=== PATIENT | male | born 1940 | race Caucasian/White ===

== ENCOUNTER → 2016-10-16 | Outpatient (CLI) | payer BC ==
[~2016-10-16] MED LIST: ADVIN25050 INH; ALBUAER INH; ASPCH81 PO; ASPI81TA28 PO; BUME1TAB PO; DILT240C57 PO; DLCSR180 PO; ERGO1CAP35 PO; LNX125 PO; MULTCAP31 PO; TRAM-10 PO; WARF2TAB8 PO; WARF4TAB8 PO
[2016-10-16 12:30] LABS: URINE APPEARANCE CLEAR (CLEAR); URINE BILIRUBIN NEG (NEG); URINE COLOR YELLOW; URINE EPITHELIAL CELL AUTO 0-5 /lpf (0-5); URINE NITRITE NEG (NEG); URINE PH 6.5 (4.5-7.5); URINE SPECIFIC GRAVITY 1.007 (1.000-1.030); UROBILINOGEN NEG (NEG)
[2016-10-16 12:34] LABS: BLOOD UREA NITROGEN 17 mg/dl (7-18); BUN/CREATININE RATIO 13.9 (10-20); CALCIUM 8.7 mg/dl (8.5-10.1); CARBON DIOXIDE 26 mmol/L (21-32); CHLORIDE 106 mmol/L (98-107); GLUCOSE 100 mg/dl (70-99); HEMATOCRIT 47.5 % (42-52); MEAN CELL VOLUME 83.5 fL (80-100); MEAN CORPUSCULAR HEMOGLOBIN 28.5 pg (25-34); MEAN CORPUSCULAR HGB CONC 34.1 g/dl (32-36); MEAN PLATELET VOLUME 11.5 fL (7.4-10.4); PLATELET COUNT 212 K/uL (130-400); POTASSIUM 3.7 mmol/L (3.5-5.1); RED BLOOD COUNT 5.69 M/uL (4.7-6.1); SODIUM 141 mmol/L (136-145); WHITE BLOOD COUNT 9.44 K/uL (4.8-10.8)
[2016-10-16 12:35] LABS: PHOSPHORUS 2.4 mg/dl (2.5-4.9)
[2016-10-16 12:52] LABS: MANUAL MICROSCOPIC REQUIRED? NO; REVIEW REQ? NO
[2016-10-16 13:02] LABS: URINE PROTIEN/CREAT RATIO 0.2 (0-0.2); URINE TOTAL PROTEIN 10.7 mg/dl (0-11.9)
== END | disposition home or self-care (01) ==
LOC: C.LABBFT 09:09
PROVIDERS: ATTEND Internal Medicine Nephrology
DX: I12.9 Hypertensive chronic kidney disease with stage 1 through stage 4 chronic kidney disease, or unspecified chronic kidney disease (principal); N18.3 Chronic kidney disease, stage 3 (moderate); E55.9 Vitamin D deficiency, unspecified; N25.81 Secondary hyperparathyroidism of renal origin

== ENCOUNTER → 2017-02-05 | Outpatient (CLI) | payer BC ==
--- NOTE | 2017-02-05 14:50 | DIAGNOSTIC IMAGING REPORT ---
TWO VIEW CHEST CLINICAL HISTORY: Cough. Hemoptysis. FINDINGS: PA and lateral chest radiographs are compared to study dated 01/25/2016. Correlation is made with chest CT dated 11/17/2015. The PA view is degraded by patient rotation. The heart is enlarged and there is atherosclerotic calcification of the thoracic aorta. The pulmonary vasculature is noncongested. Emphysema and chronic interstitial thickening is similar to previous. There is no airspace consolidation or pleural effusion. Scattered calcified granulomas are observed. There is no pneumothorax. The skeletal structures are osteopenic. Degenerative change is noted throughout the thoracic spine. IMPRESSION: Cardiomegaly and emphysema. No acute cardiopulmonary abnormality is seen. Electronically signed by: Donavon Mann M.D. 02/05/2017 2:49 PM Dictated Date/Time: 02/05/2017 2:47 PM
== END | disposition home or self-care (01) ==
LOC: C.RAD1850 14:35
PROVIDERS: ATTEND Physician Assistant
DX: R04.2 Hemoptysis (principal); R59.0 Localized enlarged lymph nodes; R14.0 Abdominal distension (gaseous); I51.7 Cardiomegaly; J43.9 Emphysema, unspecified

== ENCOUNTER 2017-03-26 15:48 | Emergency (ER) | payer BC ==
[~2017-03-26] VITALS: Ht 177.8 cm; Wt 122.0 kg
[~2017-03-26 15:48] MED LIST changes: -ASPI81TA28 PO; -DILT240C57 PO; -LNX125 PO
[2017-03-26 16:03] VITALS: TEMP 36.3; Ht 177.8 cm; Wt 122.0 kg
--- NOTE | 2017-03-26 17:04 | DIAGNOSTIC IMAGING REPORT ---
LEFT KNEE 1 OR 2 VIEWS ROUTINE CLINICAL HISTORY: fall trauma COMPARISON: None. DISCUSSION: The bones and joint spaces appear intact. There is no evidence of fracture, dislocation or bony disease. There has been a total left knee arthroplasty There is no evidence for soft tissue swelling. IMPRESSION: Negative study. The above report was generated using voice recognition software. It may contain grammatical, syntax or spelling errors. Electronically signed by: Chapo De La Rosa M.D. 03/26/2017 5:03 PM Dictated Date/Time: 03/26/2017 5:03 PM
--- NOTE | 2017-03-26 17:05 | DIAGNOSTIC IMAGING REPORT ---
LEFT PELVIS/UNILATERAL HIP 2-3VIEWS CLINICAL HISTORY: hip pain fall COMPARISON STUDY: None. FINDINGS: Mild osteoarthritis within the left hip. No fracture or dislocation within the pelvis or hips. The sacrum is intact. Soft tissues demonstrate mild swelling along the lateral aspect of the left hip. IMPRESSION: Mild lateral hip soft tissue swelling. No fracture or dislocation within the pelvis or hips. Electronically signed by: Shaheen Farias M.D. 03/26/2017 5:04 PM Dictated Date/Time: 03/26/2017 5:02 PM
[2017-03-26] MEDS ORDERED: LNX125 PO (17:36)
[2017-03-26] MEDS ORDERED: DILT240C57 PO (17:36)
[2017-03-26] MEDS ORDERED: ALBUAER INH (17:36)
[2017-03-26] MEDS ORDERED: ASPI81TA28 PO (17:36)
--- NOTE | 2017-03-26 18:01 | EMERGENCY ROOM VISIT NOTE ---
History Report prepared by Sulaiman: Amparo Cartagena Under the Supervision of: Dr. Allan Mcrae D.O. First contact with patient: 16:30 Chief Complaint: HIP PAIN Stated Complaint: LEFT HIP PAIN History of Present Illness The patient is a 76 year old male who presents to the Emergency Room with complaints of persistent left hip pain that began last night around 2230. He currently rates her discomfort as a 9.5/10 in severity. The patient states that around 0 last evening he fell on his back porch. He states that he has chronic left knee pain. The patient states that he has been able to ambulate with the assistance of his cane. He reports increased edema to his left knee. The patient states that movement worsens his pain, but rest alleviates his discomfort. The patient states that he is on Coumadin. He additionally reports that he fell last week, causing an abrasion to his right [place]. Source of History: patient Onset: last night around 2230 Position: other (left hip) Symptom Intensity: 9.5/10 Timing: other (persistent) Modifying Factors (Worsening): movement Modifying Factors (Relieving): rest Review of Systems See HPI for pertinent positives & negatives. A total of 10 systems reviewed and were otherwise negative. Past Medical & Surgical Medical Problems: (1) JEFFERY (acute kidney injury) (2) Atrial fibrillation (3) Chronic kidney disease, stage 3 (4) COPD (chronic obstructive pulmonary disease) (5) COPD exacerbation (6) Hematuria, microscopic (7) New onset atrial fibrillation (8) New onset atrial fibrillation (9) Sepsis Surgical Problems: (1) History of hernia repair (2) Knee joint replacement status Family History FH: cancer FH: lung disease Hypertension Social History Smoking Status: Former Smoker Alcohol Use: none Drug Use: none Marital Status: Housing Status: lives alone Occupation Status: retired Current/Historical Medications Scheduled Aspirin (Aspirin Ec), 81 MG PO DAILY Bumetanide (Bumex), 1 MG PO DAILY Digoxin (Digoxin), 1 TAB PO DAILY Diltiazem Hcl Coated Beads (Cardizem Cd), 240 MG PO DAILY Fluticasone Prop/Salmeterol (Advair Diskus 250-50 Mcg/Dose), 1 PUFF INH BID Multiple Vitamins W/ Minerals (Ocuvite Lutein), 1 TAB PO DAILY Warfarin Sod (Jantoven), 4 MG PO UD Scheduled PRN Albuterol Sulfate (Proventil Hfa), 2 PUFFS INH QID PRN for SOB/Wheezing Allergies Coded Allergies: BEE STING (Unverified Allergy, Unknown, SWELLING, 03/26/17) Physical Exam Vital Signs Date Time Temp Pulse Resp B/P (MAP) Pulse Ox O2 Delivery O2 Flow Rate FiO2 03/26/17 17:45 85 18 146/82 95 Room Air 03/26/17 16:03 36.3 89 18 162/84 96 Room Air Physical Exam CONSTITUTIONAL/VITAL SIGNS: Reviewed / noted above. GENERAL: Non-toxic in appearance. INTEGUMENTARY: Warm, dry, and [place]. HEAD: Normocephalic. EYES: without scleral icterus or trauma. ENT/OROPHARYNX: clear and moist. LYMPHADENOPATHY/NECK: Is supple without lymphadenopathy or meningismus. RESPIRATORY: Lungs clear and equal. CARDIOVASCULAR: Regular rate and rhythm. GI/ABDOMEN: Soft and nontender. No organomegaly or pulsatile mass. No rebound or guarding. Normal bowel sounds. EXTREMITIES: Tenderness to palpation of the left lateral hip and left lateral knee. Range of motion is limited due to pain. Warm and well perfused. BACK: No CVA tenderness. NEUROLOGICAL: Intact without focal deficits. PSYCHIATRIC: normal affect. MUSCULOSKELETAL: Normally developed with good muscle tone. Medical Decision & Procedures ER Provider Diagnostic Interpretation: X ray results and stated below per my interpretation and radiology interpretation. LEFT KNEE 1 OR 2 VIEWS ROUTINE CLINICAL HISTORY: fall trauma COMPARISON: None. DISCUSSION: The bones and joint spaces appear intact. There is no evidence of fracture, dislocation or bony disease. There has been a total left knee arthroplasty There is no evidence for soft tissue swelling. IMPRESSION: Negative study. The above report was generated using voice recognition software. It may contain grammatical, syntax or spelling errors. Electronically signed by: Chapo De La Rosa M.D. 03/26/2017 5:03 PM Dictated Date/Time: 03/26/2017 5:03 PM LEFT PELVIS/UNILATERAL HIP 2-3VIEWS CLINICAL HISTORY: hip pain fall COMPARISON STUDY: None. FINDINGS: Mild osteoarthritis within the left hip. No fracture or dislocation within the pelvis or hips. The sacrum is intact. Soft tissues demonstrate mild swelling along the lateral aspect of the left hip. IMPRESSION: Mild lateral hip soft tissue swelling. No fracture or dislocation within the pelvis or hips. Electronically signed by: Shaheen Farias M.D. 03/26/2017 5:04 PM Dictated Date/Time: 03/26/2017 5:02 PM ED Course 1636: Previous medical records were reviewed. The patient was evaluated in room A12A. A complete history and physical examination was performed. 180: I reevaluated the patient and he is resting comfortably. I discussed the exam findings with him and I discussed the treatment plan. He verbalized complete understanding and agreement. He is ready to go home. Medical Decision Differential diagnosis: Etiologies such as fracture, dislocation, neurovascular compromise, compartment syndrome, soft tissue injury, as well as others were entertained. This is a 76-year-old male who presents to the ED with a chief complaint of a fall and left-sided hip and knee pain. The patient states that around 10:30 PM last night he was not walking with his cane and lost his balance when his knee gave out on him causing him to fall. The patient complains of left hip and knee pain. It is worse with palpation and certain movements. He denies hitting his head or headache. Head is normal on exam. His exam is noted above. He does have some tenderness in the left hip laterally and left knee laterally. His range of motion is limited due to discomfort. X-rays did not show fracture or dislocation. He was told the results. He was offered a walker but declined. He is felt to be stable for discharge. Medication Reconcilliation Current Medication List: was personally reviewed by me Blood Pressure Screening Patient's blood pressure: Elevated blood pressure Blood pressure disposition: Elevated BP felt to be situational, Did not require urgent referral Impression Primary Impression: Multiple contusions Scribe Attestation The scribe's documentation has been prepared under my direction and personally reviewed by me in its entirety. I confirm that the note above accurately reflects all work, treatment, procedures, and medical decision making performed by me. Departure Information Dispostion Home / Self-Care Referrals No Doctor, Assigned (PCP) Forms HOME CARE DOCUMENTATION FORM, IMPORTANT VISIT INFORMATION, WORK / SCHOOL INSTRUCTIONS Patient Instructions My [facility] Additional Instructions Follow-up with your doctor for further care and evaluation in 1-2 days. Return to the emergency department for worsening or new symptoms or any concerns. You have been examined and treated today on an emergency basis only. This is not a substitute for, or an effort to provide, complete comprehensive medical care. It is impossible to recognize and treat all injuries or illnesses in a single emergency department visit. It is therefore important that you follow up closely with your doctor. Call as soon as possible for an appointment.
[2017-03-26 18:03] VITALS: BP 146/82; PULSE 85; O2SAT 95
== END 2017-03-26 18:04 | disposition home or self-care (01) ==
LOC: C.EDB 15:48 → C.EDA 18:04
DX: S70.02XA Contusion of left hip, initial encounter (principal); S80.02XA Contusion of left knee, initial encounter; W19.XXXA Unspecified fall, initial encounter; I48.91 Unspecified atrial fibrillation; N18.3 Chronic kidney disease, stage 3 (moderate); J44.9 Chronic obstructive pulmonary disease, unspecified; Z96.659 Presence of unspecified artificial knee joint; Z79.01 Long term (current) use of anticoagulants; Z79.82 Long term (current) use of aspirin; Z79.899 Other long term (current) drug therapy; Z87.891 Personal history of nicotine dependence; Z80.9 Family history of malignant neoplasm, unspecified; Z82.49 Family history of ischemic heart disease and other diseases of the circulatory system; Z91.030 Bee allergy status

== ENCOUNTER → 2017-11-06 | Outpatient (CLI) | payer BC ==
[~2017-11-06] MED LIST changes: -ASPCH81 PO; +ASPI81TA28 PO; +DILT240C57 PO; -DLCSR180 PO; -ERGO1CAP35 PO; +LNX125 PO; -TRAM-10 PO; -WARF2TAB8 PO
[2017-11-06 16:35] LABS: HEMATOCRIT 50.1 % (42-52); HEMOGLOBIN 16.9 g/dL (14.0-18.0); MEAN CELL VOLUME 90.3 fL (80-100); MEAN CORPUSCULAR HEMOGLOBIN 30.5 pg (25-34); MEAN CORPUSCULAR HGB CONC 33.7 g/dl (32-36); MEAN PLATELET VOLUME 11.1 fL (7.4-10.4); PLATELET COUNT 208 K/uL (130-400); RED CELL DISTRIBUTION WIDTH CV 15.2 % (11.5-14.5); RED CELL DISTRIBUTION WIDTH SD 50.9 fL (36.4-46.3); WHITE BLOOD COUNT 7.78 K/uL (4.8-10.8)
[2017-11-06 16:52] LABS: ALBUMIN 4.1 gm/dl (3.4-5.0); BLOOD UREA NITROGEN 19 mg/dl (7-18); CALCIUM 9.3 mg/dl (8.5-10.1); CARBON DIOXIDE 24 mmol/L (21-32); GLUCOSE 115 mg/dl (70-99); PHOSPHORUS 2.9 mg/dl (2.5-4.9); POTASSIUM 3.8 mmol/L (3.5-5.1); SODIUM 136 mmol/L (136-145)
== END | disposition home or self-care (01) ==
LOC: C.LABBFT 12:11
PROVIDERS: ATTEND Internal Medicine Nephrology
DX: I70.1 Atherosclerosis of renal artery (principal); I12.9 Hypertensive chronic kidney disease with stage 1 through stage 4 chronic kidney disease, or unspecified chronic kidney disease; N18.3 Chronic kidney disease, stage 3 (moderate); N25.81 Secondary hyperparathyroidism of renal origin; E55.9 Vitamin D deficiency, unspecified